=== PATIENT | male | born 1935 | race African-American/Black ===

== ENCOUNTER 2018-03-04 12:40 | Inpatient (IN) | payer MEDICARE, MEDICAID ==
[2018-03-04] MEDS ORDERED: LIDOCAINE 1% INJ-PF (10 MG/ML) 30 ML SDV INJ ONE (13:48)
--- NOTE | 2018-03-04 13:48 | ER Document Report ---
ED Extremity Problem, Lower - General Mode of Arrival: Ambulatory Information source: Patient TRAVEL OUTSIDE OF THE [place] IN LAST 30 DAYS: No <DOMENICA MENDOZA - Last Filed: 03/04/18 13:55> <DULCE FUNG - Last Filed: 03/04/18 17:40> - General Chief Complaint: Leg Swelling Stated Complaint: KNEE PAIN Time Seen by Provider: 03/04/18 12:56 Notes: 83-year-old male who presents to the emergency department today with complaints of right knee pain. Patient states he has been having increasing swelling and pain in the knee for the last 2 weeks. Patient states he has not had any increased or new activity that could have aggravated this. Patient states he has had swelling like this in the past that has had to be drained. Patient states he does not have a history of gout. (DOMENICA MENDOZA) - Related Data Allergies/Adverse Reactions: No Known Allergies Allergy (Unverified 03/04/18 13:22) Past Medical History - General Information source: Patient - Social History Smoking Status: Former Smoker Cigarette use (# per day): No Chew tobacco use (# tins/day): No Frequency of alcohol use: Occasional Drug Abuse: None Lives with: Family Family History: Reviewed & Not Pertinent Patient has suicidal ideation: No Patient has homicidal ideation: No Renal/ Medical History: Denies: Hx Peritoneal Dialysis <DOMENICA MENDOZA - Last Filed: 03/04/18 13:55> - Past Medical History Cardiac Medical History: Reports: Hx Hypercholesterolemia, Hx Hypertension Pulmonary Medical History: Reports: Hx COPD Endocrine Medical History: Reports: Hx Diabetes Mellitus Type 2 Renal/ Medical History: Reports: None GI Medical History: Reports: None Musculoskeletal Medical History: Reports Hx Arthritis Skin Medical History: Reports None Psychiatric Medical History: Reports: None <DULCE FUNG - Last Filed: 03/04/18 17:40> Review of Systems - Review of Systems Constitutional: No symptoms reported EENT: No symptoms reported Cardiovascular: No symptoms reported Respiratory: No symptoms reported Gastrointestinal: No symptoms reported Genitourinary: No symptoms reported Male Genitourinary: No symptoms reported Musculoskeletal: See HPI, Joint pain - Right knee Skin: No symptoms reported Hematologic/Lymphatic: No symptoms reported Neurological/Psychological: No symptoms reported -: Yes All other systems reviewed and negative <DOMENICA MENDOZA - Last Filed: 03/04/18 13:55> Physical Exam <DOMENICA MENDOZA - Last Filed: 03/04/18 13:55> <DULCE FUNG - Last Filed: 03/04/18 17:40> - Vital signs Vitals: Resp 22 H 03/04/18 12:40 - Notes Notes: Physical Exam: General: Alert, appears well. HEENT: Normocephalic. Atraumatic. PERRL. Extraocular movements intact. Oropharynx clear. Neck: Supple. Non-tender. Respiratory: No respiratory distress. Clear and equal breath sounds bilaterally. Cardiovascular: Regular rate and rhythm. Abdominal: Normal Inspection. Non-tender. No distension. Normal Bowel Sounds. Back: Non-tender. No deformity or step off. Extremities: Moves all four extremities. Upper extremities: Normal inspection. Normal ROM. Lower extremities: Right knee effusion with some warmth. Neurological: Normal cognition. AAOx4. Normal speech. Psychological: Normal affect. Normal Mood. Skin: Warm. Dry. Normal color. (DOMENICA MENDOZA) Course <DOMENICA MENDOZA - Last Filed: 03/04/18 13:55> - Laboratory Result Diagrams: 03/04/18 14:07 03/04/18 14:07 - Diagnostic Test Radiology reviewed: Image reviewed - Chest x-ray does not show an acute process. - EKG Interpretation by Ms EKG shows normal: Sinus rhythm, [place], Intervals, QRS Complexes. abnormal: ST-T Waves - Borderline anterolateral T abnormalities Rate: Tachycardia - 110 Rhythm: PVC's Voltage: Consistant with LVH When compared to previous EKG there are: Previous EKG unavailable - Consults Dr. Adrian Time consulted: 17:30 Consulted provider: will come to ER <ANTONIETAKINJALDULCE - Last Filed: 03/04/18 17:40> - Re-evaluation Re-evalutation: 03/04/18 15:56 The patient's potassium was 2.7, he is not on any diuretics. There is no clear explanation for why his potassium is so low. His blood sugar was 44, but he is on oral hypoglycemics, and has not eaten all day. He was given 40 mEq of potassium p.o. with orange juice to wash it down. He was given a ham sandwich with a box of chocolate milk to watch that down while we are waiting for the synovial fluid evaluation. 03/04/18 16:07 Patient was given the potassium, he began breathing funny and O2 saturating 85% . He then began shaking. Elected to give him an amp of D50 through the saline lock he had, and then having a potassium rider and place him on the monitor as I was concerned that the sugar we gave him might cause his potassium to drop even lower. I suspect the shaking he was having that looked like shivering might be due to the low blood sugar. He was completely awake alert talking during all of this. 03/04/18 17:01 Synovial fluid analysis does not suggest an infectious cause for his effusion. 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 He is shaking so badly that he splashes the drinks onto his shirt. He is vague about how long this may have been going on, but his friend who lives with him states he has never seen him do this before. I am also concerned about the patient being on oral hypoglycemic medications with these low blood sugars. (DULCE FUNG) - Vital Signs Vital signs: Temp Pulse Resp BP Pulse Ox 98.7 F 98 37 H 143/97 H 100 03/04/18 12:42 03/04/18 12:42 03/04/18 17:06 03/04/18 17:06 03/04/18 17:06 - Laboratory Laboratory results interpreted by me: 03/04/18 03/04/18 03/04/18 14:07 14:07 16:14 WBC 12.8 H RBC 3.55 L Hgb 11.7 L Hct 34.8 L MCV 98 H Seg Neutrophils % 83.4 H Lymphocytes % 6.6 L Absolute Neutrophils 10.6 H Potassium 2.7 L* Chloride 87 L Carbon Dioxide 39 H Glucose 44 L POC Glucose 53 L Uric Acid 9.0 H Total Bilirubin 1.7 H Direct Bilirubin 0.7 H ALT 9 L Urine Protein Urine Glucose (UA) Urine Ketones Urine Blood Urine Urobilinogen Ur Leukocyte Esterase 03/04/18 16:49 WBC RBC Hgb Hct MCV Seg Neutrophils % Lymphocytes % Absolute Neutrophils Potassium Chloride Carbon Dioxide Glucose POC Glucose Uric Acid Total Bilirubin Direct Bilirubin ALT Urine Protein 100 H Urine Glucose (UA) 50 H Urine Ketones 20 H Urine Blood SMALL H Urine Urobilinogen 2.0 H Ur Leukocyte Esterase SMALL H Procedures - Joint Aspiration Right Knee Consent obtained: Yes - Verbal consent, patient is requesting the procedure Joint aspiration pre-procedure: Betadine prep applied, Other - Alcohol wipes following the Betadine prep Anesthetic type: 1% Lidocaine mL's of anesthetic: 3 Needle size: 18 Amount/type of drainage: 90mls straw colored Number of attempts: 1 Complications: No <DULCE FUNG - Last Filed: 03/04/18 17:40> Discharge <DOMENICA MENDOZA - Last Filed: 03/04/18 13:55> - Discharge Admitting Provider: Hospitalist <DULCE FUNG - Last Filed: 03/04/18 17:40> - Discharge Clinical Impression: Effusion of right knee, Hypokalemia, Hypoglycemia, Tremor High blood pressure Qualifiers: Hypertension type: essential hypertension Qualified Code(s): I10 - Essential ( primary) hypertension COPD (chronic obstructive pulmonary disease) Qualifiers: COPD type: unspecified COPD Qualified Code(s): J44.9 - Chronic obstructive pulmonary disease, unspecified Urinary tract infection Qualifiers: Urinary tract infection type: site unspecified Hematuria presence: without hematuria Qualified Code(s): N39.0 - Urinary tract infection, site not specified Disposition: ADMITTED INPATIENT Referrals: LARISSA HOLLINS MD [ACTIVE STAFF] - Follow up as needed Scribe Attestation: 03/04/18 17:39 I personally performed the services described in the documentation, reviewed and edited the documentation which was dictated to the scribe in my presence, and it accurately records my words and actions. (DULCE FUNG) Scribe Documentation - Scribe Written by Scribe:: Guillermina Chapman, 03/04/2018 1357 acting as scribe for :: Antonieta <DOMENICA MENDOZA - Last Filed: 03/04/18 13:55>
[2018-03-04 14:24] LABS: ABSOLUTE BASOPHILS # (AUTO) 0.1 10^3/uL (0.0-0.2); ABSOLUTE LYMPHOCYTES (AUTO) 0.8 10^3/uL (0.5-4.7); ABSOLUTE MONOCYTES (AUTO) 1.2 10^3/uL (0.1-1.4); ABSOLUTE NEUT (AUTO) 10.6 10^3/uL (1.7-8.2); BASOPHILS % (AUTO) 0.6 % (0-2); EOSINOPHILS % (AUTO) 0.3 % (0-6); HEMATOCRIT 34.8 % (37.9-51.0); HEMOGLOBIN 11.7 g/dL (13.5-17.0); LYMPHOCYTES % (AUTO) 6.6 % (13-45); MEAN CORPUSCULAR HEMOGLOBIN 32.9 pg (27.0-33.4); MEAN CORPUSCULAR HGB CONC 33.6 g/dL (32.0-36.0); MEAN CORPUSCULAR VOLUME 98 fl (80-97); MONOCYTES % (AUTO) 9.1 % (3-13); PLATELET COUNT 255 10^3/uL (150-450); RED BLOOD COUNT 3.55 10^6/uL (4.35-5.55); SEGMENTED NEUTROPHILS % (AUTO) 83.4 % (42-78); TOTAL CELLS COUNTED % (AUTO) 100 %; WHITE BLOOD COUNT 12.8 10^3/uL (4.0-10.5)
[2018-03-04 14:52] LABS: ALANINE AMINOTRANSFERASE 9 U/L (21-72); ALBUMIN 3.8 g/dL (3.5-5.0); ALKALINE PHOSPHATASE 59 U/L (38-126); ANION GAP 11 (5-19); ASPARTATE AMINO TRANSFERASE 26 U/L (17-59); BILIRUBIN,DIRECT 0.7 mg/dL (0.0-0.4); BILIRUBIN,TOTAL 1.7 mg/dL (0.2-1.3); BLOOD UREA NITROGEN 14 mg/dL (7-20); CALCIUM 8.6 mg/dL (8.4-10.2); CARBON DIOXIDE 39 mmol/L (22-30); CHLORIDE 87 mmol/L (98-107); GLUCOSE 44 mg/dL (75-110); TOTAL PROTEIN 7.7 g/dL (6.3-8.2)
[2018-03-04 15:00] LABS: POTASSIUM 2.7 mmol/L (3.6-5.0)
[2018-03-04 15:29] LABS: CALCIUM PYROPHOSPHATE CRYSTALS NONE OBSERVED; MONOSODIUM URATE CRYSTALS NONE OBSERVED; OTHER CRYSTALS NONE OBSERVED
[2018-03-04] MEDS ORDERED: POTASSIUM CHLORIDE 10 MEQ CAPSULE.ER PO ONE (15:43)
[2018-03-04 15:45] LABS: FLUID APPEARANCE CLOUDY; FLUID COLOR YELLOW; FLUID SOURCE KNEE; FLUID TYPE SYNOVIAL
[2018-03-04 15:46] LABS: FLUID VISCOSITY MODERATELY VISCOUS
[2018-03-04] MEDS ORDERED: DEXTROSE 50%-WATER 25 GM/50 ML DISP.SYRIN IV ONE ×2 (16:03→16:04)
[2018-03-04] MEDS ORDERED: POTASSI CL 20 MEQ/50 ML RIDER 20 MEQ/50 ML RTUPB IV ONE ×2 (16:03→16:05)
[2018-03-04] MEDS ORDERED: IPRATROPIUM/ALBUTEROL 0.5-2.5 MG/3 ML AMPUL NEB ONE ×2 (16:56)
[2018-03-04 17:19] LABS: APPEARANCE,URINE CLOUDY; BILIRUBIN,URINE NEGATIVE (NEGATIVE); COLOR,URINE YELLOW; GLUCOSE, URINE 50 mg/dL (NEGATIVE); KETONES,URINE 20 mg/dL (NEGATIVE); LEUKOCYTE ESTERASE,URINE SMALL (NEGATIVE); NITRITE,URINE NEGATIVE (NEGATIVE); PROTEIN,URINE 100 mg/dL (NEGATIVE); URINE SPECIFIC GRAVITY 1.021
[2018-03-04] MEDS ORDERED: CEPHALEXIN 500 MG CAPSULE PO ONE (17:24)
--- NOTE | 2018-03-04 17:26 | RADIOLOGY REPORT (SQ) ---
EXAM DESCRIPTION: CHEST SINGLE VIEW COMPLETED DATE/TIME: 03/04/2018 5:07 pm REASON FOR STUDY: SOB COMPARISON: None. EXAM PARAMETERS: NUMBER OF VIEWS: One view. TECHNIQUE: Single frontal radiographic view of the chest acquired. RADIATION DOSE: NA LIMITATIONS: None. FINDINGS: LUNGS AND PLEURA: No consolidation, masses or pneumothorax. No pleural effusion. MEDIASTINUM AND HILAR STRUCTURES: Age-appropriate contour. HEART AND VASCULAR STRUCTURES: Heart upper limits of normal in size. Normal vasculature. BONES: No acute findings. HARDWARE: None in the chest. OTHER: No other significant finding. IMPRESSION: NO ACUTE RADIOGRAPHIC FINDING IN THE CHEST. TECHNICAL DOCUMENTATION: JOB ID: [id number] [id number] [email or web address]- All Rights Reserved Reading location - IP/workstation name: [email or web address]
[2018-03-04] MEDS ORDERED: IPRATROPIUM/ALBUTEROL 0.5-2.5 MG/3 ML AMPUL NEB PRN (18:29)
[2018-03-04] MEDS ORDERED: GLUCAGON,HUMAN RECOMB 1 MG INJ IM PRN (18:40)
[2018-03-04] MEDS ORDERED: DEXTROSE 40% GEL 15 GM TUBE PO PRN ×2 (18:40)
[2018-03-04] MEDS ORDERED: DEXTROSE 50%-WATER 25 GM/50 ML DISP.SYRIN IV PRN ×2 (18:40)
--- NOTE | 2018-03-04 18:54 | PDOC H&P ---
History of Present Illness Admission Date/PCP: 03/04/2018 Patient complains of: Right knee and leg pain History of Present Illness: ENRRIQUE MONTES is a 83 year old male who presents to the emergency room today with complaint of right knee and leg pain. Patient had a swollen right knee but also had unilateral edema of the right lower extremity. The knee was aspirated by the emergency room physician which showed a noninfective synovitis. His blood sugar was 44 the patient had taken his glipizide and metformin but did not eat because of the pain in his leg. His potassium was low at 2.7 and admission for the hypoglycemia and electrolyte imbalance was ordered. Patient did have pyuria with 25 WBCs but negative nitrates and small esterase a culture was sent. Upon my evaluation of the patient is unilateral right leg edema was new his calf was tender. His oxygen saturations on 2 L were 87-92%. A request for a d- dimer a stat CTA and ultrasound were requested and are pending at the time of this dictation. Patient is a former smoker with a [id number] history he claims he has oxygen at home but does not use it most of the time. The patient was reluctant to be admitted and may sign out AGAINST MEDICAL ADVICE. Past Medical History Cardiac Medical History: Reports: Hyperlipidema, Hypertension Pulmonary Medical History: Reports: Chronic Obstructive Pulmonary Disease (COPD) Endocrine Medical History: Reports: Diabetes Mellitus Type 2 Renal/ Medical History: Reports: None GI Medical History: Reports: None Musculoskeltal Medical History: Reports: Arthritis Skin Medical History: Reports: None Psychiatric Medical History: Reports: None Past Surgical History Past Surgical History: Reports: None Social History Lives with: Family Smoking Status: Former Smoker Number of Years Smokin Frequency of Alcohol Use: Heavy - Patient drinks one half to a whole pint of bourbon a day Last Alcohol Use: 04/03/18 Drugs: None Family History Family History: DM, Hypertension Parental Family History Reviewed: Yes Children Family History Reviewed: Yes Sibling(s) Family History Reviewed.: Yes Medication/Allergy Allergies/Adverse Reactions: No Known Allergies Allergy (Unverified 03/04/18 13:22) Review of Systems Constitutional: ABSENT: chills, fever(s), headache(s), weight gain, weight loss Eyes: ABSENT: visual disturbances Ears: ABSENT: hearing changes Cardiovascular: PRESENT: edema. ABSENT: chest pain, dyspnea on exertion, orthropnea, palpitations Respiratory: PRESENT: dyspnea. ABSENT: cough Gastrointestinal: ABSENT: abdominal pain, constipation, diarrhea, hematemesis, hematochezia, nausea, vomiting Genitourinary: ABSENT: dysuria, hematuria Musculoskeletal: PRESENT: joint swelling - Right knee, other - Right leg swelling Endocrine: ABSENT: cold intolerance, heat intolerance, polydipsia, polyuria Hematologic/Lymphatic: ABSENT: easy bleeding, easy bruising Physical Exam Vital Signs: Temp Pulse Resp BP Pulse Ox 98.7 F 98 23 H 168/94 H 96 03/04/18 12:42 03/04/18 12:42 03/04/18 18:01 03/04/18 18:00 03/04/18 18:01 General appearance: PRESENT: no acute distress, well-developed, well-nourished Head exam: PRESENT: atraumatic, normocephalic Eye exam: PRESENT: conjunctiva pink, EOMI, PERRLA. ABSENT: scleral icterus Ear exam: PRESENT: normal external ear exam Mouth exam: PRESENT: moist, tongue midline Neck exam: ABSENT: carotid bruit, JVD, lymphadenopathy, thyromegaly Respiratory exam: PRESENT: clear to auscultation liz - This breath sounds throughout. ABSENT: rales, rhonchi, wheezes Cardiovascular exam: PRESENT: RRR. ABSENT: diastolic murmur, rubs, systolic murmur Pulses: PRESENT: normal dorsalis pedis pul GI/Abdominal exam: PRESENT: normal bowel sounds, soft. ABSENT: distended, guarding, mass, organolmegaly, rebound, tenderness Rectal exam: PRESENT: deferred Extremities exam: PRESENT: calf tenderness - Calf tenderness, full ROM, tenderness - Right knee tenderness, +2 edema. ABSENT: clubbing, pedal edema Neurological exam: PRESENT: alert, awake, oriented to person, oriented to place , oriented to time, oriented to situation, other - Willing rigidity with pill rolling tremor Psychiatric exam: PRESENT: other - That affect Skin exam: PRESENT: dry, intact, warm. ABSENT: cyanosis, rash Results Laboratory Results: 03/04/18 14:07 03/04/18 14:07 03/04/18 03/04/18 03/04/18 14:07 14:07 14:40 WBC 12.8 H RBC 3.55 L Hgb 11.7 L Hct 34.8 L MCV 98 H MCH 32.9 MCHC 33.6 RDW 14.0 Plt Count 255 Seg Neutrophils % 83.4 H Lymphocytes % 6.6 L Monocytes % 9.1 Eosinophils % 0.3 Basophils % 0.6 Absolute Neutrophils 10.6 H Absolute Lymphocytes 0.8 Absolute Monocytes 1.2 Absolute Eosinophils 0.0 Absolute Basophils 0.1 Sodium 137.0 Potassium 2.7 L* Chloride 87 L Carbon Dioxide 39 H Anion Gap 11 BUN 14 Creatinine 1.09 Est GFR ( Amer) > 60 Est GFR (Non-Af Amer) > 60 Glucose 44 L Uric Acid 9.0 H Calcium 8.6 Total Bilirubin 1.7 H AST 26 ALT 9 L Alkaline Phosphatase 59 Total Protein 7.7 Albumin 3.8 Urine Color Urine Appearance Urine pH Ur Specific [place] Urine Protein Urine Glucose (UA) Urine Ketones Urine Blood Urine Nitrite Ur Leukocyte Esterase Urine WBC (Auto) Urine RBC (Auto) Fluid Type SYNOVIAL Fluid Source KNEE Fluid Color YELLOW Fluid Appearance CLOUDY Fluid Viscosity MODERATELY VISCOUS Fluid WBC 1350 Fluid RBC 2950 03/04/18 03/04/18 14:40 16:49 WBC RBC Hgb Hct MCV MCH MCHC RDW Plt Count Seg Neutrophils % Lymphocytes % Monocytes % Eosinophils % Basophils % Absolute Neutrophils Absolute Lymphocytes Absolute Monocytes Absolute Eosinophils Absolute Basophils Sodium Potassium Chloride Carbon Dioxide Anion Gap BUN Creatinine Est GFR ( Amer) Est GFR (Non-Af Amer) Glucose Uric Acid Calcium Total Bilirubin AST ALT Alkaline Phosphatase Total Protein Albumin Urine Color YELLOW Urine Appearance CLOUDY Urine pH 5.0 Ur Specific [place] 1.021 Urine Protein 100 H Urine Glucose (UA) 50 H Urine Ketones 20 H Urine Blood SMALL H Urine Nitrite NEGATIVE Ur Leukocyte Esterase SMALL H Urine WBC (Auto) 35 Urine RBC (Auto) 3 Fluid Type SYNOVIAL Fluid Source RIGHT KNEE Fluid Color Fluid Appearance Fluid Viscosity Fluid WBC Fluid RBC Impressions: Chest X-Ray 03/04/18 16:55 IMPRESSION: NO ACUTE RADIOGRAPHIC FINDING IN THE CHEST. Assessment & Plan - Diagnosis (1) COPD (chronic obstructive pulmonary disease) Qualifiers: COPD type: unspecified COPD Qualified Code(s): J44.9 - Chronic obstructive pulmonary disease, unspecified Plan: Patient states he has oxygen at home and does not use it indicating he has chronic hypoxemic respiratory failure. With the unilateral right lower extremity swelling calf tenderness pulmonary embolism must be ruled out. I have asked for a stat ultrasound CTA and d-dimer to be done by the emergency room as it was not done before I was called. Once results are known if indicated patient will be put on formal anticoagulation. Will use nebulizing treatments for his COPD however he has no acute exacerbation at this time and his chest x-ray is clear (2) Effusion of right knee Plan: Tap performed by the emergency room no evidence of infection. (3) Hypoglycemia Plan: Discontinue sulfonylurea will hold metformin Place patient on sliding scale coverage encouraged to eat. Anticipate hypoglycemia due to sulfonylurea for the next 24 hours (4) Tremor Plan: Pill-rolling with cogwheel rigidity consistent with Parkinson's patient unaware of diagnosis (5) Urinary tract infection Qualifiers: Urinary tract infection type: site unspecified Hematuria presence: without hematuria Qualified Code(s): N39.0 - Urinary tract infection, site not specified Plan: Ultrasound by ER will use Rocephin empirically until culture results obtained - Time Time Spent: 50 to 70 Minutes Anticipated discharge: Home Within: within 48 hours - Inpatient Certification Based on my medical assessment, after consideration of the patient's comorbidities, presenting symptoms, or acuity I expect that the services needed warrant INPATIENT care.: Yes I certify that my determination is in accordance with my understanding of Medicare's requirements for reasonable and necessary INPATIENT services [42 CFR 412.3e].: Yes Medical Necessity: Need Close Monitoring Due to Risk of Patient Decompensation
--- NOTE | 2018-03-04 19:28 | RADIOLOGY REPORT (SQ) ---
EXAM DESCRIPTION: CTA CHEST COMPLETED DATE/TIME: 03/04/2018 7:08 pm REASON FOR STUDY: hypoxic COMPARISON: None. TECHNIQUE: CT scan of the chest performed using helical scanning technique with dynamic intravenous contrast injection. Images reviewed with lung, soft tissue and bone windows. Reconstructed coronal and sagittal MPR images reviewed. Additional 3 dimensional post-processing performed to develop Maximal Intensity Projection images (DC P). All images stored on PACS. All CT scanners at this facility use dose modulation, iterative reconstruction, and/or weight based d osing when appropriate to reduce radiation dose to as low as reasonably achievable (ALARA). [facility]: Dose Right [facility]: CareDose [facility]: Dose Right [facility]: Teradose 4D [facility]: Visier CONTRAST TYPE AND DOSE: contrast/concentration: Isovue 350.00 mg/ml; Total Contrast Delivered: 85.0 ml; Total Saline Delivered: 70.0 ml Contrast bolus optimized for the pulmonary arteries. Not diagnostic for the aorta. RENAL FUNCTION: BUN 14 creatinine 1.1 RADIATION DOSE: CT Rad equipment meets quality standard of care and radiation dose reduction techniq ues were employed. CTDIvol: 14.3 - 16.5 mGy. DLP: 548 mGy-cm. . LIMITATIONS: None. FINDINGS: LUNGS AND PLEURA: Centrilobular emphysematous changes in the upper lobes. AORTA AND GREAT VESSELS: No aneurysm. Contrast bolus not optimized for the aorta. HEART: No pericardial effusion. Moderate to marked coronary artery calcifications. PULMONARY ARTERIES: No emboli visualized in the main pulmonary arteries or the segmental branches. HILAR AND MEDIASTINAL STRUCTURES: Mild mediastinal adenopathy. HARDWARE: None in the chest. UPPER ABDOMEN: No significant findings. Limited exam. THYROID AND OTHER SOFT TISSUES: No masses. No adenopathy. BONES: No acute or significant finding. 3D MIPS: Confirm above findings. OTHER: No other significant finding. IMPRESSION: 1. There is no evidence of pulmonary emboli. 2. Upper lobe centrilobular emphysema. COMMENT: Quality ID # [id number]: Final reports with documentation of one or more dose reduction techniques (e.g., Automated exposure control, adjustment of the mA and/or kV according to patient size, use of iterative reconstruction technique) TECHNICAL DOCUMENTATION: JOB ID: [id number] [employer]- All Rights Reserved Reading location - IP/workstation name: [email or web address]
[2018-03-04] MEDS ORDERED: COLCHICINE 0.6 MG TABLET PO PRN (19:37)
[2018-03-04] MEDS ORDERED: HYDRALAZINE HCL INJ/PF 20 MG/1 ML SDV IV PRN (19:38)
[2018-03-04] MEDS ORDERED: LISINOPRIL 10 MG TABLET PO ONE (20:00)
[2018-03-04] MEDS ORDERED: ENOXAPARIN SODIUM INJ 40 MG/0.4 ML DISP.SYRIN SUBCUT SCH (20:00)
[2018-03-04] MEDS ORDERED: ENOXAPARIN SODIUM INJ 40 MG/0.4 ML DISP.SYRIN SUBCUT ONE (21:00)
--- NOTE | 2018-03-04 22:49 | EKG REPORT ---
SEVERITY:- ABNORMAL ECG - SINUS RHYTHM PAIRED VENTRICULAR PREMATURE COMPLEXES NONSPECIFIC T ABNORMALITIES, LATERAL LEADS : Confirmed by: Norma Neal 04-Mar-2018 22:48:32
[2018-03-05] MEDS: RINGERS SOLUTION,LACTATED 1,000 ML IV PRN ×2 (02:38→18:45)
[2018-03-05] MEDS: MAGNESIUM SULFATE/D5W 1 GM/100 ML RTUPB IV SCH ×2 (02:46→03:51)
[2018-03-05] MEDS ORDERED: LISINOPRIL 10 MG TABLET PO ONE (03:30)
[2018-03-05] MEDS ORDERED: ENOXAPARIN SODIUM INJ 40 MG/0.4 ML DISP.SYRIN SUBCUT ONE (03:30)
[2018-03-05] MEDS ORDERED: LISINOPRIL 10 MG TABLET ONE (04:03)
[2018-03-05 04:51] LABS: ANION GAP 12 (5-19); BLOOD UREA NITROGEN 11 mg/dL (7-20); CALCIUM 8.7 mg/dL (8.4-10.2); CARBON DIOXIDE 33 mmol/L (22-30); CHLORIDE 91 mmol/L (98-107); GLUCOSE 169 mg/dL (75-110); PHOSPHORUS 2.3 mg/dL (2.5-4.5); SODIUM 136.3 mmol/L (137-145)
[2018-03-05 04:55] LABS: MEAN CORPUSCULAR HEMOGLOBIN 32.5 pg (27.0-33.4); MEAN CORPUSCULAR HGB CONC 33.3 g/dL (32.0-36.0); MEAN CORPUSCULAR VOLUME 98 fl (80-97); PLATELET COUNT 232 10^3/uL (150-450); RED BLOOD COUNT 3.38 10^6/uL (4.35-5.55); RED CELL DISTRIBUTION WIDTH 13.8 % (11.5-14.0); WHITE BLOOD COUNT 11.7 10^3/uL (4.0-10.5)
[2018-03-05 05:13] LABS: ABSOLUTE LYMPHOCYTES# (MANUAL) 0.2 10^3/uL (0.5-4.7); ABSOLUTE MONOCYTES # (MANUAL) 0.5 10^3/uL (0.1-1.4); ABSOLUTE NEUTROPHILS# (MANUAL) 10.9 10^3/uL (1.7-8.2); BASOPHILS % (MANUAL) 0 % (0-2); EOSINOPHILS % (MANUAL) 1 % (0-6); LYMPHOCYTES % (MANUAL) 2 % (13-45); MONOCYTES % (MANUAL) 4 % (3-13); SEGMENTED NEUTROPHILS % (MAN) 93 % (42-78); TOTAL CELLS COUNTED 100
[2018-03-05 05:14] LABS: ANISOCYTOSIS SLIGHT; PLATELET COMMENT ADEQUATE
[2018-03-05] MEDS ORDERED: POTASSIUM CHLORIDE 10 MEQ CAPSULE.ER PO ONE (06:00)
[2018-03-05] MEDS ORDERED: POTASSI CL 20 MEQ/50 ML RIDER 20 MEQ/50 ML RTUPB IV ONE (07:39)
--- NOTE | 2018-03-05 07:59 | Physician Advisory Note ---
Physician Advisor ProgressNote .: [facility] I have reviewed the medical record for this patient. Physician Advisor Statement: Nice documentation of chronic hypoxemia resp failure. Status: Medicare pt, appropriately made Obs initially for hypoglycemia & UTI, hypokalemia, tachypnea/tachycardia/leukocytosis, concern for possible DVT/PE, in setting of what appears to be chronic resp failure, underlying undx'd Parkinsons dz, COPD, & acute Rt knee effusion - & prominent chronic anemia due to . - Pt remained tachypneic into the 20s & 30s until late PM on 1st night. - Continues w/signif hypokalemia, leukocytosis today, & appears to have developed a mild fever to 100.0 despite starting abx to cover for UTI. - If attending finds that pt cannot be safely d/c'd home today after some electrolyte replacement etc this AM, please document the ongoing clinical concerns/issues, & may change to Inpatient status. Thanks! CK
--- NOTE | 2018-03-05 09:48 | RADIOLOGY REPORT (SQ) ---
EXAM DESCRIPTION: VENOUS UNILATERAL LOWER COMPLETED DATE/TIME: 03/05/2018 9:22 am REASON FOR STUDY: RLE PAIN SWELLING R33.8 OTHER RETENTION OF URINE COMPARISON: None. TECHNIQUE: Dynamic and static madden scale and color images acquired of the right leg venous system. S elected spectral images acquired with additional compression and augmentation maneuvers. The contrala teral common femoral vein and saphenofemoral junction were also imaged. Images stored on PACS. LIMITATIONS: Non compliant patient, refused imaging of the left common femoral and saphenofemoral ju nction regions FINDINGS: RIGHT COMMON FEMORAL: Normal phasicity, compression and augmentation. No visualized echogenic material on g ray scale. No defects on color images. FEMORAL: Normal compression and augmentation. No visualized echogenic material on madden scale. No defe cts on color images. POPLITEAL: Poorly visualized due to bandages POSTERIOR TIBIAL VEINS: Normal compression, augmentation. No visualized echogenic material on madden sc karlee. No defects on color images. PERONEAL VEINS: Not well seen GSV and SSV: Normal compression, augmentation. No visualized echogenic material on madden scale. No def ects on color images. ANY DEEP VENOUS INSUFFICIENCY: Not evaluated. ANY EVIDENCE OF POPLITEAL CYST: No. OTHER: No other significant finding. LEFT COMMON FEMORAL VEIN AND SAPHENOFEMORAL JUNCTION: Patient refused imaging IMPRESSION: Limited negative study for deep venous thrombus right leg TECHNICAL DOCUMENTATION: JOB ID: [id number] [employer]- All Rights Reserved Reading location - IP/workstation name: [email or web address]
[2018-03-05] MEDS: POTASSIUM CHLORIDE 10 MEQ CAPSULE.ER PO SCH ×2 (09:51→17:14)
[2018-03-05] MEDS: METOPROLOL TARTRATE 25 MG TABLET PO SCH ×2 (09:52→21:09)
[2018-03-05] MEDS: BUDESONIDE/FORMOTEROL 160-4.5 MCG 60 PUFF/6 GM MDI IH SCH ×2 (09:52→21:10)
[2018-03-05] MEDS: LISINOPRIL 10 MG TABLET PO SCH (09:52)
[2018-03-05] MEDS: MAGNESIUM OXIDE 400 MG TABLET PO SCH ×2 (09:52→17:14)
[2018-03-05] MEDS ORDERED: CEFTRIAXONE 1 GM/D5W RTU 1 GM/50 ML RTUPB IV SCH (10:00)
[2018-03-05] MEDS: CEFTRIAXONE SODIUM 1,000 MG in DEXTROSE 5%-WATER 50 ML IV SCH (10:01)
--- NOTE | 2018-03-05 10:16 | PDOC PROGRESS REPORT ---
Subjective Progress Note for:: 03/05/18 Subjective:: ENRRIQUE MONTES is a 83 year old male who presents to the emergency room today with complaint of right knee and leg pain. Patient had a swollen right knee but also had unilateral edema of the right lower extremity. The knee was aspirated by the emergency room physician which showed a noninfective synovitis. His blood sugar was 44 the patient had taken his glipizide and metformin but did not eat because of the pain in his leg. His potassium was low at 2.7 and admission for the hypoglycemia and electrolyte imbalance was ordered. Patient did have pyuria with 25 WBCs but negative nitrates and small esterase a culture was sent. Patient's white count decreasing. CTA negative for PE ultrasound negative for DVT. Potassium low although improved. Reason For Visit: HYPOGLYCEMIA Physical Exam Vital Signs: Temp Pulse Resp BP Pulse Ox 98.7 F 97 18 166/91 H 97 03/05/18 07:45 03/05/18 07:45 03/05/18 07:45 03/05/18 07:45 03/05/18 07:45 Intake & Output 03/04/18 03/05/18 03/06/18 06:59 06:59 06:59 Intake Total 100 Output Total 300 Balance -200 Weight 66 kg General appearance: PRESENT: no acute distress, well-developed, well-nourished Eye exam: PRESENT: conjunctiva pink, EOMI, PERRLA. ABSENT: scleral icterus Neck exam: ABSENT: carotid bruit, JVD, lymphadenopathy, thyromegaly Respiratory exam: PRESENT: clear to auscultation liz. ABSENT: rales, rhonchi, wheezes Cardiovascular exam: PRESENT: RRR. ABSENT: diastolic murmur, rubs, systolic murmur GI/Abdominal exam: PRESENT: normal bowel sounds, soft. ABSENT: distended, guarding, mass, organolmegaly, rebound, tenderness Extremities exam: PRESENT: calf tenderness - Right lower extremity, tenderness - Right knee, +2 edema - Right lower extremity Neurological exam: PRESENT: alert, awake, oriented to person, oriented to place , oriented to time, oriented to situation, CN II-XII grossly intact, other - Tremor cogwheel rigidity. ABSENT: motor sensory deficit Skin exam: PRESENT: dry, intact, warm. ABSENT: cyanosis, rash Results Laboratory Results: 03/05/18 04:08 03/05/18 04:08 03/05/18 03/05/18 03/05/18 04:08 04:08 04:08 WBC 11.7 H RBC 3.38 L Hgb 11.0 L Hct 33.0 L MCV 98 H MCH 32.5 MCHC 33.3 RDW 13.8 Plt Count 232 Seg Neutrophils % Not Reportable Lymphocytes % Not Reportable Monocytes % Not Reportable Eosinophils % Not Reportable Basophils % Not Reportable Absolute Neutrophils Not Reportable Absolute Lymphocytes Not Reportable Absolute Monocytes Not Reportable Absolute Eosinophils Not Reportable Absolute Basophils Not Reportable Sodium 136.3 L Potassium 3.0 L* Chloride 91 L Carbon Dioxide 33 H Anion Gap 12 BUN 11 Creatinine 1.00 Est GFR ( Amer) > 60 Est GFR (Non-Af Amer) > 60 Glucose 169 H Calcium 8.7 Phosphorus 2.3 L Magnesium 1.5 L TSH 1.25 Impressions: Chest/Abdomen CTA 03/04/18 00:00 IMPRESSION: 1. There is no evidence of pulmonary emboli. 2. Upper lobe centrilobular emphysema. Chest X-Ray 03/04/18 16:55 IMPRESSION: NO ACUTE RADIOGRAPHIC FINDING IN THE CHEST. Venous Doppler Study 03/05/18 00:00 IMPRESSION: Limited negative study for deep venous thrombus right leg Assessment & Plan - Diagnosis (1) COPD (chronic obstructive pulmonary disease) Qualifiers: COPD type: unspecified COPD Qualified Code(s): J44.9 - Chronic obstructive pulmonary disease, unspecified Is this a current diagnosis for this admission?: Yes Plan: Patient states he has oxygen at home and does not use it indicating he has chronic hypoxemic respiratory failure. With the unilateral right lower extremity swelling calf tenderness pulmonary embolism and DVT have been ruled out. Continue patient's Symbicort as needed nebulizing treatments. There is no active wheezing or exacerbation at this time. Stressed compliance with oxygen. Will assess patient for ambulatory oxygen needs prior to discharge (2) Effusion of right knee Is this a current diagnosis for this admission?: Yes Plan: Tap performed by the emergency room no evidence of infection. No crystals uric acid level is 9 patient started empirically on colchicine. As he has no crystals and the need and no other active arthritis will initiate allopurinol 100 mg to be titrated in the outpatient setting (3) Hypoglycemia Is this a current diagnosis for this admission?: Yes Plan: Discontinue sulfonylurea will resume metformin but decreased to [address] patient on sliding scale coverage encouraged to eat. Anticipate hypoglycemia due to sulfonylurea for the next 24 hours. Patient needs new primary care provider consult case management for discharge planning (4) Tremor Is this a current diagnosis for this admission?: Yes Plan: Exam consistent with Parkinson's. Will ask physical therapy to assess patient for gait stability may benefit from ongoing physical therapy in the outpatient setting. (5) Urinary tract infection Qualifiers: Urinary tract infection type: site unspecified Hematuria presence: without hematuria Qualified Code(s): N39.0 - Urinary tract infection, site not specified Is this a current diagnosis for this admission?: Yes Plan: Rocephin empirically urine culture negative so far. White count decreasing (6) Chronic hypoxemic respiratory failure Is this a current diagnosis for this admission?: Yes (7) Hyperuricemia Is this a current diagnosis for this admission?: Yes Plan: Begin allopurinol effusion and knee negative for crystals - Time Time Spent with patient: 25-34 minutes Anticipated discharge: Home Within: within 24 hours
[2018-03-05] MEDS: INSULIN REG, HUMAN 100 UNIT/ML 3 ML VIAL (PYX) SUBCUT PRN ×2 (11:42→17:16)
[2018-03-05] MEDS: ALLOPURINOL 100 MG TABLET PO SCH (13:06)
[2018-03-05] MEDS: METFORMIN HCL 500 MG TABLET PO SCH (17:11)
[2018-03-05] MEDS ORDERED: (PENDING PHARMACY ID) (Metformin Hcl [Glucophage] 500 MG) PO SCH (18:00)
[2018-03-05] MEDS ORDERED: SIMVASTATIN 40 MG TABLET PO SCH (22:00)
[2018-03-05] MEDS ORDERED: ENOXAPARIN SODIUM INJ 40 MG/0.4 ML DISP.SYRIN SUBCUT SCH (22:00)
[2018-03-06 05:24] LABS: ABSOLUTE EOSINOPHILS # (AUTO) 0.1 10^3/uL (0.0-0.6); ABSOLUTE MONOCYTES (AUTO) 1.1 10^3/uL (0.1-1.4); BASOPHILS % (AUTO) 0.3 % (0-2); EOSINOPHILS % (AUTO) 1.5 % (0-6); HEMATOCRIT 31.2 % (37.9-51.0); HEMOGLOBIN 10.3 g/dL (13.5-17.0); MEAN CORPUSCULAR HEMOGLOBIN 32.6 pg (27.0-33.4); MEAN CORPUSCULAR HGB CONC 33.1 g/dL (32.0-36.0); MEAN CORPUSCULAR VOLUME 98 fl (80-97); PLATELET COUNT 258 10^3/uL (150-450); RED BLOOD COUNT 3.17 10^6/uL (4.35-5.55); RED CELL DISTRIBUTION WIDTH 13.8 % (11.5-14.0); SEGMENTED NEUTROPHILS % (AUTO) 75.2 % (42-78); TOTAL CELLS COUNTED % (AUTO) 100 %; WHITE BLOOD COUNT 9.3 10^3/uL (4.0-10.5)
[2018-03-06 05:44] LABS: ANION GAP 6 (5-19); BLOOD UREA NITROGEN 12 mg/dL (7-20); CALCIUM 8.6 mg/dL (8.4-10.2); CARBON DIOXIDE 36 mmol/L (22-30); CHLORIDE 94 mmol/L (98-107); GLUCOSE 94 mg/dL (75-110); POTASSIUM 3.6 mmol/L (3.6-5.0); SODIUM 135.5 mmol/L (137-145)
[2018-03-06] MEDS: RINGERS SOLUTION,LACTATED 1,000 ML IV PRN (06:22)
[2018-03-06] MEDS: MAGNESIUM OXIDE 400 MG TABLET PO SCH (09:13)
[2018-03-06] MEDS: LISINOPRIL 10 MG TABLET PO SCH (09:14)
[2018-03-06] MEDS: ALLOPURINOL 100 MG TABLET PO SCH (09:15)
[2018-03-06] MEDS: POTASSIUM CHLORIDE 10 MEQ CAPSULE.ER PO SCH (09:15)
[2018-03-06] MEDS: METOPROLOL TARTRATE 25 MG TABLET PO SCH (09:15)
[2018-03-06] MEDS: CEFTRIAXONE SODIUM 1,000 MG in DEXTROSE 5%-WATER 50 ML IV SCH (09:16)
[2018-03-06] MEDS: BUDESONIDE/FORMOTEROL 160-4.5 MCG 60 PUFF/6 GM MDI IH SCH (09:20)
[2018-03-06] MEDS: METFORMIN HCL 500 MG TABLET PO SCH ×2 (09:21→16:06)
--- NOTE | 2018-03-06 10:50 | EKG REPORT ---
SEVERITY:- ABNORMAL ECG - SINUS RHYTHM PAIRED VENTRICULAR PREMATURE COMPLEXES NONSPECIFIC T ABNORMALITIES, LATERAL LEADS : Confirmed by: Norma Neal 06-Mar-2018 10:50:12
--- NOTE | 2018-03-06 11:21 | PDOC DISCHARGE SUMMARY ---
General - Admit/Disc Date/PCP Admission Date/Primary Care Provider: 03/05/18 18:27 Discharge Date: 03/06/18 - Discharge Diagnosis (1) COPD (chronic obstructive pulmonary disease) Is this a current diagnosis for this admission?: Yes (2) Effusion of right knee Is this a current diagnosis for this admission?: Yes (3) Hypoglycemia Is this a current diagnosis for this admission?: Yes Summary: Sulfonylurea discontinued. Continue with metformin. (4) Tremor Is this a current diagnosis for this admission?: Yes Summary: Cogwheeling rigidity suspect patient has onset of Parkinson's disease. Recommend neurologic referral and outpatient setting (5) Urinary tract infection Is this a current diagnosis for this admission?: Yes Summary: Culture negative (6) Chronic hypoxemic respiratory failure Is this a current diagnosis for this admission?: Yes Summary: Patient has oxygen at home is noncompliant with it. Patient to undergo oxygen evaluation to be instructed on use. Will arrange home health with nursing to check compliance of medications. (7) Hyperuricemia Is this a current diagnosis for this admission?: Yes Summary: Allopurinol 100 mg daily initiated (8) Diabetes mellitus type 2 in nonobese Is this a current diagnosis for this admission?: Yes Summary: Sulfonylurea discontinued due to hypoglycemia hemoglobin A1c 8.7 patient to follow-up with primary care and continue metformin alone. - Additional Information Discharge Activity: Activity As Tolerated Prescriptions: Allopurinol [Zyloprim 100 mg Tablet] 100 mg PO DAILY #30 tablet Ipratropium/Albuterol Sulfate [Duoneb 3 ml Ampul] 3 ml NEB [id number] PRN #120 vial.neb PRN Reason: Metoprolol Tartrate [Lopressor 25 mg Tablet] 25 mg PO Q12 #30 tablet Simvastatin [Zocor 40 mg Tablet] 40 mg PO QHS #30 tablet Home Medications: Albuterol Sulfate [Proventil Hfa] 2 puff IH Q4 03/04/18 Budesonide/Formoterol Fumarate [Symbicort 160-4.5 Mcg Inhaler] 1 puff IH Q12 06/21 Lisinopril/Hydrochlorothiazide [Zestoretic 20-12.5 mg Tablet] 1 tab PO DAILY 06/21 Metformin HCl [Glucophage] 1,000 mg PO BID 03/04/18 Allopurinol [Zyloprim 100 mg Tablet] 100 mg PO DAILY #30 tablet 03/06/18 Ipratropium/Albuterol Sulfate [Duoneb 3 ml Ampul] 3 ml NEB [id number] PRN #120 vial.neb 03/06/18 Metoprolol Tartrate [Lopressor 25 mg Tablet] 25 mg PO Q12 #30 tablet 03/06/18 Simvastatin [Zocor 40 mg Tablet] 40 mg PO QHS #30 tablet 03/06/18 History of Present Illness History of Present Illness: ENRRIQUE MONTES is a 83 year old male who presents to the emergency room today with complaint of right knee and leg pain. Patient had a swollen right knee but also had unilateral edema of the right lower extremity. The knee was aspirated by the emergency room physician which showed a noninfective synovitis. His blood sugar was 44 the patient had taken his glipizide and metformin but did not eat because of the pain in his leg. His potassium was low at 2.7 and admission for the hypoglycemia and electrolyte imbalance was ordered. Patient did have pyuria with 25 WBCs but negative nitrates and small esterase a culture was sent. Upon my evaluation of the patient is unilateral right leg edema was new his calf was tender. His oxygen saturations on 2 L were 87-92%. A request for a d- dimer a stat CTA and ultrasound were requested and are pending at the time of this dictation. Patient is a former smoker with a [id number] history he claims he has oxygen at home but does not use it most of the time. The patient was reluctant to be admitted and may sign out AGAINST MEDICAL ADVICE. Hospital Course Hospital Course: Patient underwent a CTA in the emergency room after d-dimer was greater than 2. CTA showed no pulmonary emboli. An ultrasound of the lower extremity was performed which showed no DVT. Patient underwent an arthrocentesis in the ER by the emergency room physician it was a noninfected cytology with no crystals seen. His uric acid level was 9 and he was empirically started on Colcrys. Because of the hypoglycemia the patient's sulfonylurea was discontinued he was admitted to the medical floor after he agreed to stay in the hospital. While in the hospital patient was noncompliant with his oxygen which he is noncompliant at home as well. He had reasonable glycemic control on sliding scale alone while in the hospital. His urinalysis at 25 white cells but inconclusive on nitrates culture was negative he was however started on Rocephin empirically he was not sent home on antibiotics. Patient has a resting tremor and cogwheeling rigidity he does not carry a diagnosis of Parkinson's but his exam is consistent with this. Because of the effusion abnormal gait and the Parkinson's a consult with physical therapy was obtained. Because of patient's questionable compliance with his medications home health was arranged for medication review and compliance and for home physical therapy. Patient's primary care provider left the area sometime ago he needs follow-up and was provided with a new primary care provider at the time of discharge. Physical Exam Vital Signs: Temp Pulse Resp BP Pulse Ox 98.2 F 100 20 159/94 H 100 03/06/18 07:24 03/06/18 07:24 03/06/18 07:24 03/06/18 07:24 03/06/18 07:24 Intake & Output 03/05/18 03/06/18 03/07/18 06:59 06:59 06:59 Intake Total 1600 50 Output Total 700 Balance 900 50 Weight 66.6 kg General appearance: PRESENT: no acute distress, well-developed, well-nourished Eye exam: PRESENT: conjunctiva pink, EOMI, PERRLA. ABSENT: scleral icterus Neck exam: ABSENT: carotid bruit, JVD, lymphadenopathy, thyromegaly Respiratory exam: PRESENT: clear to auscultation liz. ABSENT: rales, rhonchi, wheezes Cardiovascular exam: PRESENT: RRR. ABSENT: diastolic murmur, rubs, systolic murmur Extremities exam: PRESENT: full ROM, tenderness - Right knee, +2 edema - Right leg suspect chronic ultrasound negative for DVT. ABSENT: calf tenderness, clubbing, pedal edema Neurological exam: PRESENT: alert, awake, oriented to person, oriented to place , oriented to time, oriented to situation, CN II-XII grossly intact, other - Resting tremor with cogwheel rigidity. ABSENT: motor sensory deficit Results Laboratory Results: 03/06/18 04:11 03/06/18 04:11 03/06/18 03/06/18 04:11 04:11 WBC 9.3 RBC 3.17 L Hgb 10.3 L Hct 31.2 L MCV 98 H MCH 32.6 MCHC 33.1 RDW 13.8 Plt Count 258 Seg Neutrophils % 75.2 Lymphocytes % 11.0 L Monocytes % 12.0 Eosinophils % 1.5 Basophils % 0.3 Absolute Neutrophils 7.0 Absolute Lymphocytes 1.0 Absolute Monocytes 1.1 Absolute Eosinophils 0.1 Absolute Basophils 0.0 Sodium 135.5 L Potassium 3.6 Chloride 94 L Carbon Dioxide 36 H Anion Gap 6 BUN 12 Creatinine 1.03 Est GFR ( Amer) > 60 Est GFR (Non-Af Amer) > 60 Glucose 94 Calcium 8.6 Magnesium 1.6 Impressions: Chest/Abdomen CTA 03/04/18 00:00 IMPRESSION: 1. There is no evidence of pulmonary emboli. 2. Upper lobe centrilobular emphysema. Chest X-Ray 03/04/18 16:55 IMPRESSION: NO ACUTE RADIOGRAPHIC FINDING IN THE CHEST. Venous Doppler Study 03/05/18 00:00 IMPRESSION: Limited negative study for deep venous thrombus right leg Qualifiers - * PATIENT BEING DISCHARGED WITH ANY OF THE FOLLOWING DIAGNOSIS: No Plan Time Spent: Greater than 30 Minutes
[2018-03-06 11:44] VITALS: BP 148/78
[2018-03-06] MEDS: INSULIN REG, HUMAN 100 UNIT/ML 3 ML VIAL (PYX) SUBCUT PRN (12:52)
== END 2018-03-06 16:35 | disposition home health service (06) | DRG 637 ==
LOC: ER 12:40 → EH 19:49 → 5 20:54 → OBSVTOIN 03-05 18:27
PROVIDERS: ADMIT Internal Medicine; ATTEND Internal Medicine
PROC: 0S9C3ZX Drainage of Right Knee Joint, Percutaneous Approach, Diagnostic (ICD-10-PCS; principal; 2018-03-04)
PROC: 3E0F73Z Introduction of Anti-inflammatory into Respiratory Tract, Via Natural or Artificial Opening (ICD-10-PCS; 2018-03-06)
PROC: 3E0234Z Introduction of Serum, Toxoid and Vaccine into Muscle, Percutaneous Approach (ICD-10-PCS; 2018-03-06)
DX: E11.649 Type 2 diabetes mellitus with hypoglycemia without coma (principal); J96.21 Acute and chronic respiratory failure with hypoxia; N39.0 Urinary tract infection, site not specified; J96.11 Chronic respiratory failure with hypoxia; J43.2 Centrilobular emphysema; M25.461 Effusion, right knee; R25.1 Tremor, unspecified; E78.00 Pure hypercholesterolemia, unspecified; I11.0 Hypertensive heart disease with heart failure; M19.90 Unspecified osteoarthritis, unspecified site; I49.3 Ventricular premature depolarization; E87.6 Hypokalemia; M65.9 Synovitis and tenosynovitis, unspecified; Z99.81 Dependence on supplemental oxygen; Z87.891 Personal history of nicotine dependence; Z91.19 Patient's noncompliance with other medical treatment and regimen; Z83.3 Family history of diabetes mellitus; Z82.49 Family history of ischemic heart disease and other diseases of the circulatory system; Z23 Encounter for immunization
CPT/HCPCS: 36415; 71045; 71275; 80048; 80053; 81001; 82962; 83036; 83735; 84100; 84443; 84550; 85025; 85379; 87070; 87075; 87086; 87205; 89050; 89060; 90471; 90686; 93005; 93010; 93971; 94640; 96365; 96366; 96375; 99285; G0008; G0378; J0360; J0696; J1650; J1815; J3475; J3480; J3490; J7620